=== PATIENT | male | born 1950 | race Hispanic/Latino ===

== ENCOUNTER → 2020-10-31 | Outpatient (CLI) | payer OTHER ==
[~2020-10-31] VITALS: Ht 170.2 cm; Wt 103.0 kg
[~2020-10-31] MED LIST: CLOT15CR23 TP; NAPR-1023 PO; REGADENOSON 0.4 MG/5 ML PF SYG IVP SCH
== END | disposition home or self-care (01) ==
LOC: SHCH 07:41
PROVIDERS: ATTEND Internal Medicine
DX: R06.02 Shortness of breath (principal)
CPT/HCPCS: 78452; 93017; 96374; A9500 ×2; J2785

== ENCOUNTER → 2021-02-06 | Outpatient (CLI) | payer OTHER ==
[~2021-02-06] MED LIST changes: -REGADENOSON 0.4 MG/5 ML PF SYG IVP SCH
== END | disposition home or self-care (01) ==
LOC: RAH 09:41
PROVIDERS: ATTEND Physical Medicine & Rehabilitation
DX: M17.0 Bilateral primary osteoarthritis of knee (principal); M47.816 Spondylosis without myelopathy or radiculopathy, lumbar region
CPT/HCPCS: 72114; 73560

== ENCOUNTER → 2021-02-23 | Outpatient (CLI) | payer OTHER | END | disposition home or self-care (01) | LOC: RAH 13:36 | PROVIDERS: ATTEND Physical Medicine & Rehabilitation | DX: M19.012 Primary osteoarthritis, left shoulder (principal); M47.812 Spondylosis without myelopathy or radiculopathy, cervical region; M48.02 Spinal stenosis, cervical region | CPT/HCPCS: 72050; 73030 ==

== ENCOUNTER → 2021-03-12 | Outpatient (CLI) | payer OTHER | END | disposition home or self-care (01) | LOC: RAH 14:38 | PROVIDERS: ATTEND Physical Medicine & Rehabilitation | DX: M47.812 Spondylosis without myelopathy or radiculopathy, cervical region (principal); M48.02 Spinal stenosis, cervical region; M25.78 Osteophyte, vertebrae | CPT/HCPCS: 72040 ==

== ENCOUNTER 2021-07-22 06:23 | Observation (INO) | payer OTHER ==
[2021-07-20 11:18] LABS: BASOPHILS % (AUTO) 0.8 % (0.0-5.0); EOSINOPHILS % (AUTO) 3.6 % (0.0-8.0); HEMATOCRIT 46.5 % (42-54); LYMPHOCYTES % (AUTO) 21.9 % (21.0-51.0); MEAN CORPUSCULAR HEMOGLOBIN 27.5 pg (27.0-33.0); MEAN CORPUSCULAR HGB CONC 31.4 g/dL (32.0-36.0); MEAN CORPUSCULAR VOLUME 87.7 fL (79-99); MONOCYTES % (AUTO) 8.5 % (3.0-13.0); NEUTROPHILS % (AUTO) 64.2 % (40.0-77.0); PLATELET COUNT (AUTO) 228 K/uL (130-400); RED CELL DISTRIBUTION WIDTH 14.1 % (11.0-15.5); WHITE BLOOD COUNT (AUTO) 7.2 K/uL (4.8-10.8)
[2021-07-20 11:19] LABS: APPEARANCE,URINE Clear (CLEAR); BILIRUBIN,URINE Negative (NEGATIVE); COLOR,URINE Yellow (YELLOW); GLUCOSE, URINE (UA) TRACE mg/dL (NEGATIVE); KETONES,URINE Negative (NEGATIVE); LEUKOCYTE ESTERASE ,URINE Negative (NEGATIVE); NITRATE,URINE Negative (NEGATIVE); OCCULT BLOOD,URINE Negative (NEGATIVE); PH,URINE 7.5 (5.0-8.0); PROTEIN,URINE Negative (NEGATIVE)
[2021-07-20 11:31] LABS: POTASSIUM 4.3 mmol/L (3.5-5.1)
[2021-07-20 11:35] LABS: BACTERIA,URINE Rare /HPF (None Seen); RBC,URINE 0-1 /HPF (0-1); SQUAMOUS EPITHELIAL CELL,UR Rare /HPF (0-2); WBC,URINE 0-1 /HPF (0-1)
[2021-07-20 11:43] LABS: INR 0.96 (0.85-1.15); PROTHROMBIN TIME 10.5 SEC (9.6-11.6)
[2021-07-21 10:03] VITALS: BP 128/83
[2021-07-22] VITALS (26 sets, daily range): BP systolic 98–143; BP diastolic 62–80
[~2021-07-22] VITALS: Ht 167.6 cm; Wt 101.9 kg
[2021-07-22] MEDS: CLINDAMYCIN IVPB 900MG/50ML 50 ML IV SCH ×2 (06:00→08:20)
[~2021-07-22 06:23] MED LIST changes: +ATOR20TA65 PO; -CLOT15CR23 TP; +HYDR-4060 PO; +MONT-39 PO; -NAPR-1023 PO; +TAMS-1 PO; +TRIAMCINOLONE TP; +[UNRECOGNIZED DRUG - OTHER] PO
[2021-07-22] MEDS ORDERED: LACTATED RINGERS 1000ML 1,000 ML IV ONE (06:38)
[2021-07-22] MEDS ORDERED: VANCOMYCIN 1G VIAL ONE (08:04)
[2021-07-22] MEDS ORDERED: TRANEXAMIC ACID 1000MG/10ML ONE ×2 (08:11→11:23)
[2021-07-22] MEDS ORDERED: ACETAMINOPHEN 500 MG TABLET ONE (08:11)
[2021-07-22] MEDS ORDERED: CELECOXIB 200 MG CAP ONE (08:12)
[2021-07-22] MEDS ORDERED: LIDOCAINE HCL-MPF 1% 5ML AMP IJ ONE (08:21)
[2021-07-22] MEDS ORDERED: PROPOFOL 10 MG/ML 20ML VIAL IV ONE ×2 (08:22→10:50)
[2021-07-22] MEDS ORDERED: FENTANYL CITRATE PF 50 MCG/1 ML 2ML VIAL ONE (08:22)
[2021-07-22] MEDS ORDERED: ROCURONIUM 10MG/1ML SYR 10 MG/ML ML ONE (08:22)
[2021-07-22] MEDS ORDERED: ROPIVACAINE 0.5% 5MG/ML 30ML IJ ONE (08:28)
[2021-07-22] MEDS ORDERED: DEXAMETHASONE SOD PHOSPHATE 4 MG/ML 1ML VIAL ONE (08:41)
[2021-07-22] MEDS ORDERED: ONDANSETRON 4MG INJ ONE (08:42)
[2021-07-22] MEDS ORDERED: ONDANSETRON 4MG INJ IVP PRN (11:30)
[2021-07-22] MEDS ORDERED: FERROUS FUMARATE 324 MG TABLET PO PRN (11:30)
[2021-07-22] MEDS ORDERED: POTASSIUM CHLORIDE 20MEQ/100ML 100 ML IV PRN (11:30)
[2021-07-22] MEDS ORDERED: OXYCODONE HCL 5 MG TAB PO PRN (11:30)
[2021-07-22] MEDS ORDERED: LIDOCAINE HCL-MPF 1% 2ML VIAL IV PRN (11:30)
[2021-07-22] MEDS ORDERED: CALCIUM CARB 500MG PO PRN (11:30)
[2021-07-22] MEDS ORDERED: TEMAZEPAM 15 MG CAPSULE PO PRN (11:30)
[2021-07-22] MEDS ORDERED: DiphenhydrAMINE HCL 50 MG/ML VIAL IVP PRN (11:30)
[2021-07-22] MEDS: ACETAMINOPHEN 500 MG TABLET PO SCH ×2 (11:30→18:39)
[2021-07-22] MEDS ORDERED: POTASSIUM CHLORIDE 10% ELIXIR 20 MEQ/15 ML UDCUP PO PRN (11:30)
[2021-07-22] MEDS ORDERED: TRAMADOL HCL 50 MG TABLET PO PRN (11:30)
[2021-07-22] MEDS: 0.9%NACL 1000ML 1,000 ML IV SCH ×2 (11:30→23:32)
[2021-07-22] MEDS ORDERED: KCL 20 MEQ ERTAB PO PRN (11:30)
[2021-07-22] MEDS ORDERED: MEPERIDINE-PF 25 MG/ML SYG ONE ×2 (12:20→12:29)
[2021-07-22] MEDS ORDERED: [UNRECOGNIZED DRUG - REMARK] MISC SCH (14:30)
[2021-07-22] MEDS ORDERED: 0.9%NACL 1000ML 1,000 ML IV SCH (15:00)
[2021-07-22] MEDS: KETOROLAC 15MG/ML VIAL (15MG/ML) IV PRN ×2 (16:01→23:32)
[2021-07-22] MEDS: CLINDAMYCIN IVPB 900MG/50ML 50 ML IVPB SCH ×2 (16:01→23:32)
[2021-07-22] MEDS: OXYCODONE HCL 5 MG TAB PO PRN ×2 (16:41→20:59)
[2021-07-22] MEDS: CELECOXIB 200 MG CAP PO SCH (20:14)
[2021-07-22] MEDS: ASPIRIN 81 MG EC TAB PO SCH (20:14)
[2021-07-22] MEDS: TRIAMCINOLONE ACETONIDE 0.1% CREAM 15GM TP SCH (20:14)
[2021-07-22] MEDS: FAMOTIDINE 20MG TAB PO SCH (20:14)
[2021-07-22] MEDS: PREGABALIN 25 MG CAP PO SCH (20:14)
[2021-07-23] MEDS: CLINDAMYCIN IVPB 900MG/50ML 50 ML IV SCH (03:11)
[2021-07-23] MEDS: 0.9%NACL 1000ML 1,000 ML IV SCH (03:11)
[2021-07-23 03:23] VITALS: BP 117/68
[2021-07-23] MEDS: ACETAMINOPHEN 500 MG TABLET PO SCH ×3 (03:25→21:27)
[2021-07-23] MEDS: OXYCODONE HCL 5 MG TAB PO PRN ×3 (03:25→14:27)
[2021-07-23 04:09] LABS: HEMATOCRIT 41.1 % (42-54); MEAN CORPUSCULAR HEMOGLOBIN 27.5 pg (27.0-33.0); MEAN CORPUSCULAR HGB CONC 31.9 g/dL (32.0-36.0); MEAN CORPUSCULAR VOLUME 86.2 fL (79-99); RED BLOOD CELL COUNT(AUTO) 4.77 MIL/uL (4.50-6.20); RED CELL DISTRIBUTION WIDTH 14.1 % (11.0-15.5); WHITE BLOOD COUNT (AUTO) 7.8 K/uL (4.8-10.8)
[2021-07-23 04:15] LABS: POTASSIUM 4.2 mmol/L (3.5-5.1)
[2021-07-23 07:47] VITALS: BP 113/67
[2021-07-23] MEDS ORDERED: TAMSULOSIN HCL 0.4 MG CAP.ER.24H PO SCH (09:00)
[2021-07-23] MEDS: TAMSULOSIN HCL 0.4 MG CAP.ER.24H PO SCH (09:00)
[2021-07-23] MEDS: CELECOXIB 200 MG CAP PO SCH ×2 (09:08→21:24)
[2021-07-23] MEDS: MONTELUKAST SODIUM 10 MG TAB PO SCH (09:08)
[2021-07-23] MEDS: ATORVASTATIN 20 MG TABLET PO SCH (09:08)
[2021-07-23] MEDS: ASPIRIN 81 MG EC TAB PO SCH ×2 (09:08→21:27)
[2021-07-23] MEDS: PREGABALIN 25 MG CAP PO SCH ×2 (09:08→21:24)
[2021-07-23] MEDS: FAMOTIDINE 20MG TAB PO SCH ×2 (09:08→21:24)
[2021-07-23] MEDS: POLYETHYLENE GLYCOL 3350 17 GM POWD.PACK PO SCH (09:09)
[2021-07-23 11:00] VITALS: BP 111/69
[2021-07-23] MEDS: KETOROLAC 15MG/ML VIAL (15MG/ML) IV PRN (11:33)
[2021-07-23 16:00] VITALS: BP 128/67
[2021-07-23 20:00] VITALS: BP 114/64
[2021-07-23] MEDS: TRIAMCINOLONE ACETONIDE 0.1% CREAM 15GM TP SCH (22:21)
[2021-07-24] VITALS: BP 115/67
[2021-07-24 04:03] VITALS: BP 122/72
[2021-07-24] MEDS: ACETAMINOPHEN 500 MG TABLET PO SCH ×2 (06:00→15:24)
[2021-07-24 08:00] VITALS: BP 123/73
[2021-07-24] MEDS: OXYCODONE HCL 5 MG TAB PO PRN (08:42)
[2021-07-24] MEDS: TAMSULOSIN HCL 0.4 MG CAP.ER.24H PO SCH (08:56)
[2021-07-24] MEDS: FAMOTIDINE 20MG TAB PO SCH (08:56)
[2021-07-24] MEDS: CELECOXIB 200 MG CAP PO SCH (08:56)
[2021-07-24] MEDS: PREGABALIN 25 MG CAP PO SCH (08:56)
[2021-07-24] MEDS: MONTELUKAST SODIUM 10 MG TAB PO SCH (08:56)
[2021-07-24] MEDS: ATORVASTATIN 20 MG TABLET PO SCH (08:56)
[2021-07-24] MEDS: ASPIRIN 81 MG EC TAB PO SCH (08:56)
[2021-07-24] MEDS: POLYETHYLENE GLYCOL 3350 17 GM POWD.PACK PO SCH (09:00)
[2021-07-24 12:00] VITALS: BP 125/69
[2021-07-24] MEDS ORDERED: AEC81 PO (15:36)
[2021-07-24] MEDS ORDERED: HYDR-4060 PO (15:36)
[2021-07-25] MEDS ORDERED: BISACODYL 10 MG SUPP.RECT RC PRN (11:30)
== END 2021-07-24 17:57 ==
LOC: DAH 06:23 → DAHIP 06:24 → DAH 06:24 → 4AH 12:43
PROVIDERS: ADMIT Orthopaedic Surgery; ATTEND Orthopaedic Surgery
DX: M17.11 Unilateral primary osteoarthritis, right knee (principal); Z20.822 Contact with and (suspected) exposure to COVID-19; E78.5 Hyperlipidemia, unspecified; Z88.0 Allergy status to penicillin; Z90.49 Acquired absence of other specified parts of digestive tract; Z79.899 Other long term (current) drug therapy
CPT/HCPCS: 27447; 36415 ×2; 64447; 76942; 80048 ×2; 81001; 82948 ×8; 85025; 85027; 85610; 87088; 87635; 87641; 96365; 96366; 96375; 96376 ×2; 97039 ×5; 97116 ×4; 97161; 97530 ×5; A4215; A4221; A4222; A4223; A4600; A4649 ×5; A4663; A4930 ×3; A5120; A9272; C1776; C9803; G0378 ×51; J1100; J1885 ×3; J2175 ×2; J2405; J2704 ×2; J2795; J3010; J3370; J3490 ×6; J7120 ×2

== ENCOUNTER → 2022-12-28 | Outpatient (CLI) | payer OTHER ==
[~2022-12-28] MED LIST changes: +AEC81 PO; -[UNRECOGNIZED DRUG - OTHER] PO
== END | disposition home or self-care (01) ==
LOC: RAH 08:11
PROVIDERS: ATTEND Family Medicine
DX: N28.1 Cyst of kidney, acquired (principal); R10.33 Periumbilical pain
CPT/HCPCS: 76700

== ENCOUNTER → 2023-05-17 | Outpatient (CLI) | payer OTHER | END | disposition home or self-care (01) | LOC: RAH 14:21 | PROVIDERS: ATTEND Family Medicine | DX: J45.20 Mild intermittent asthma, uncomplicated (principal); M47.815 Spondylosis without myelopathy or radiculopathy, thoracolumbar region | CPT/HCPCS: 71046 ==

== ENCOUNTER → 2023-06-23 | Outpatient (CLI) | payer OTHER | END | disposition home or self-care (01) | LOC: SHCH 07:44 | PROVIDERS: ATTEND Student in an Organized Health Care Education/Training Program | DX: I71.9 Aortic aneurysm of unspecified site, without rupture (principal); Z13.6 Encounter for screening for cardiovascular disorders | CPT/HCPCS: 93978 ==